=== PATIENT | male | born 1965 | race Two or more races ===

== ENCOUNTER 2021-01-20 15:23 | Emergency (ER) | payer MEDICAID ==
[~2021-01-20] VITALS: Ht 188 cm; Wt 96.2 kg
--- NOTE | 2021-01-20 15:48 | NUR ---
patient came in to the er c/o dizziness while at the clinic for check up, black liquid stool x 2 days. On room air, breathing evenly and unlabored. Connected to the monitor and pulse ox. Kept comfortable, will continue to monitor accordingly.
[2021-01-20] MEDS ORDERED: ONDANSETRON HCL/PF 4 MG/2 ML VIAL ONE ×3 (15:51→23:01)
[2021-01-20] MEDS ORDERED: PANTOPRAZOLE 40 MG VIAL ONE (15:51)
[2021-01-20 15:55] LABS: BASOPHILS % (AUTO) 0.3 % (0.0-2.0); EOSINOPHILS % (AUTO) 0.1 % (0.0-6.0); HEMATOCRIT 29 % (39-51); HEMOGLOBIN 10.2 g/dL (13.5-17.5); LYMPHOCYTES # (AUTO) 0.9 /CMM (0.8-4.8); MEAN CORPUSCULAR HGB CONC 35 g/dl (31.0-36.0); MEAN CORPUSCULAR VOLUME 96 fL (80-96); MONOCYTES # (AUTO) 0.6 /CMM (0.1-1.30); MONOCYTES % (AUTO) 6.8 % (2.0-12.0); NEUTROPHILS % (AUTO) 83.8 % (43.0-81.0); PLATELET COUNT (AUTO) 279 /CMM (150-450); RED BLOOD CELL COUNT(AUTO) 3.05 MIL/uL (4.5-6.0); WHITE BLOOD COUNT (AUTO) 9.5 K/uL (4.3-11.0)
[2021-01-20] MEDS ORDERED: PANTOPRAZOLE 40 MG VIAL IV ONE (16:00)
[2021-01-20] MEDS ORDERED: IV NS 0.9% 1,000 ML BAG IV ONE ×2 (16:00→17:00)
[2021-01-20] MEDS ORDERED: ONDANSETRON HCL/PF 4 MG/2 ML VIAL IVP ONE (16:00)
--- NOTE | 2021-01-20 16:01 | NUR ---
COVID RAPID TEST SWAB IS TAKEN, SEND TO THE LAB.
[2021-01-20 16:11] LABS: ALANINE AMINOTRANSFERASE 56 U/L (12-78); ALBUMIN 3.8 g/dL (3.4-5.0); ALKALINE PHOSPHATASE 161 U/L (46-116); ASPARTATE AMINOTRANSFERASE 70 U/L (15-37); BILIRUBIN,DIRECT 0.4 mg/dL (0.0-0.2); BILIRUBIN,TOTAL 1.3 mg/dL (0.2-1.0); CALCIUM, SERUM 9.1 mg/dL (8.5-10.1); CARBON DIOXIDE 27 mmol/L (21-32); CHLORIDE 89 mmol/L (98-107); CREATININE 1.8 mg/dL (0.6-1.3); GLUCOSE 293 mg/dL (74-106); LIPASE 138 U/L (73-393); POTASSIUM 3.6 mmol/L (3.5-5.1); SODIUM SERUM 127 mmol/L (136-145); TOTAL PROTEIN, SERUM 7.9 g/dL (6.4-8.2); UREA NITROGEN, BLOOD 39 mg/dL (7-18)
[2021-01-20] MEDS ORDERED: GLIM2TAB31 PO (16:24)
[2021-01-20] MEDS ORDERED: GABA-532 PO (16:24)
[2021-01-20] MEDS ORDERED: ATOR20TA PO (16:24)
[2021-01-20] MEDS ORDERED: METF-440 PO (16:24)
[2021-01-20] MEDS ORDERED: LISI10TA29 PO (16:24)
[2021-01-20] MEDS ORDERED: PIPERACILLIN /TAZOBACTAM 3.375 G in IV D5W 50 ML IV ONE (17:00)
[2021-01-20] MEDS ORDERED: VANCOMYCIN 1 GM in IV D5W 250 ML IV ONE (17:00)
--- NOTE | 2021-01-20 17:23 | NUR ---
LAB CALLED PT COVID RESULT NEGATIVE (-)
--- NOTE | 2021-01-20 17:45 | NUR ---
received a call from the admitting and states patient will be going to [facility], awaiting transfer information.
[2021-01-20] MEDS ORDERED: ONDANSETRON HCL/PF 4 MG/2 ML VIAL IV ONE ×2 (19:00→23:00)
[2021-01-20] MEDS ORDERED: MORPHINE SULFATE INJ 10 MG/ML DISP.SYRIN IV ONE (19:00)
[2021-01-20] MEDS ORDERED: MORPHINE SULFATE INJ 4 MG/ML DISP.SYRIN ONE ×2 (19:01→23:02)
[2021-01-20] MEDS ORDERED: MORPHINE SULFATE INJ 2 MG/ML DISP.SYRIN IV ONE (23:00)
--- NOTE | 2021-01-20 23:04 | NUR ---
TRANSFER INFORMATION: PT WILL BE TRANSFERRED TO [facility] PER INSURANCE REQUEST ACCEPTING MD: DR. PIÑA NUMBER FOR REPORT: [phone] NURSE FOR REPORT: [id number] ESPAÑA
--- NOTE | 2021-01-20 23:07 | NUR ---
[employer] JAYLEN ([phone]) WILL CALL BACK WITH TRANSPORTATION [facility]
--- NOTE | 2021-01-20 23:42 | NUR ---
ETA IN 30 MIN [facility] ALS
--- NOTE | 2021-01-20 23:43 | NUR ---
BED NUMBER [id number] IN [facility] FOR REPORT: CALL [phone] TACO CHIN
[2021-01-20 23:53] VITALS: BP 113/60
--- NOTE | 2021-01-21 00:01 | NUR ---
REPORT GIVEN TO TACO AT [facility]. [facility] AT BED SIDE TO [place] THE PT
--- NOTE | 2021-01-21 00:07 | NUR ---
PT WAS TRANSFERRED TO [facility] UNDER ALS.
== END 2021-01-21 00:13 | disposition short-term general hospital (02) ==
LOC: ER 15:23
DX: K92.2 Gastrointestinal hemorrhage, unspecified (principal); N17.9 Acute kidney failure, unspecified; R42 Dizziness and giddiness; E11.9 Type 2 diabetes mellitus without complications; Z79.84 Long term (current) use of oral hypoglycemic drugs; Z79.899 Other long term (current) drug therapy; E78.00 Pure hypercholesterolemia, unspecified; I10 Essential (primary) hypertension; E87.1 Hypo-osmolality and hyponatremia; Z20.822 Contact with and (suspected) exposure to COVID-19
CPT/HCPCS: 36415; 71045; 80048; 80076; 82962; 83605 ×2; 83690; 84484; 85025; 85730; 87040 ×2; 87426; 93005; 96361; 96365; 96367; 96375; 96376; 99285; C9113; C9803; J2270 ×2; J2405 ×3; J2543; J3370; J7030 ×2; J7060